=== PATIENT | male | born 1960 | race Caucasian/White ===

== ENCOUNTER 2019-10-15 10:00 | Outpatient (RCR) | payer OTHER, SELFPAY ==
--- NOTE | 2019-10-09 10:37 | PTOPEVAL ---
PHYSICAL THERAPY EVALUATION AND PLAN OF CARE 10-09-19 The PT evaluation was completed for Mr. Levy, for the diagnosis of deconditioning. The plan of treatment is established for 2x/week for 3 weeks. During the evaluation, Bravo reported that he was depressed about his situation and not being able to do things. Thank you for referring Bravo to [facility]. Please review, sign, date and return this plan of care FABIOLA. I agree with and certify that the following plan of care is medically necessary. Referring Physician Date Attending Provider: Dr. Cari Perez *PT Outpatient Evaluation Start: 10/09/19 09:32 Document 10/09/19 09:20 SKYLAR (Rec: 10/09/19 10:10 SKYLAR [id number]) Outpatient Past Medical History Neurological History Hx Cerebrovascular Accident (CVA) Yes: 5x 2017 Cardiovascular History Hx Hypercholesterolemia Yes: meds Hx Hypertension Yes: meds Hx Other Cardiac Disorders Yes: carotid stent Respiratory History Hx Chronic Obstructive Pulmonary Disease Yes (COPD) Gastrointestinal History Hx Gastroesophageal Reflux Disease Yes Hx Other Gastrointestinal Disorders Yes: constipation Musculoskeletal History Hx Other Musculoskeletal Disorders Yes: L shoulder pain and weakness from CVA Hematological History Hx Hematological Disorders No Significant History Endocrine History Hx Endocrine Disorders No Significant History HEENT History Hx Other HEENT Disorders Yes: seasonal allergies Integumentary History Hx Eczema Yes Reproductive History Hx Reproductive Disorders No Significant History Evaluation Information Problem Diagnosis deconditioning Onset few months ago Subjective Information gradual decrease in strength; Query Text:As Reported By Patient/ have had 2 falls in past 6 Family months--tripped in living room - fell backwards, landed on L side; in bathroom, lost balance and L side landed on edge of bathtub. He reports depressed and not motivated to do anything. Also asked about therapy for his arm, to get his arm stronger and be able to use it more. Discussed OT services with pt- -he is interested in OT. Request faxed to for OT orders for eval/treatment; Previous Treatments Previous Treatments For This Problem previous PT after CVA; Prior Level of Function Medications Home Meds (Include: OTC, RX, Vitamins, aspirin, atorvastatin, Herbals, Dose, Route,and Frequency) cetirizine, clopidogrel, Query Text:Home M
--- NOTE | 2019-10-09 11:02 | PCPTNOTE ---
discussed with pt and faxed request to for OT eval/treat orders to address L UE.
--- NOTE | 2019-10-25 14:35 | PCPTNOTE ---
pt did not show for today's appt;
--- NOTE | 2019-11-20 15:23 | PCPTNOTE ---
PHYSICAL THERAPY DISCHARGE 11-20-2019 Attending Provider: Dr. Cari Perez Patient:Bravo Levy Date of :1960 Mr. Levy has not returned for any further treatments since 10/15/2019, therefore he will be discharged from therapy at this time. The goals were not assessed. He has received the PT evaluation on 10-09-19 and one treatment session, for the diagnosis of deconditioning, then did not return for any further treatment. Thank you for referring Bravo to [facility]. Please review, sign, date and return this discharge summary FABIOLA. I have been updated about the patient's current status and I agree with discharge from the above service at this time. Referring Physician Date
== END 2019-11-21 09:48 | disposition home or self-care (01) ==
LOC: ANHPT 10:00
DX: R68.89 Other general symptoms and signs (principal)
CPT/HCPCS: 97110; 97161

== ENCOUNTER 2020-01-28 12:30 | Outpatient (RCR) | payer OTHER, SELFPAY ==
[2020-01-03 09:49] VITALS: BP_SYST 85
--- NOTE | 2020-01-03 10:52 | PTOPEVAL ---
Thank you for referring this patient to [facility]. Please review, sign, date and return this plan of care FABIOLA. Pt referred to therapy due to left shoulder pain and limitations. He demonstrates decreased shoulder range, strength, and function. He requires additional skilled therapy to address impairments and achieve therapy goals. Cont PT 1x/wk x 6 wks. I agree with and certify that the following plan of care is medically necessary. Referring Physician Date Attending Provider: PHYSICIAN NOT ON STAFF Referring Provider: Dr. Naa Perez MD *PT Outpatient Evaluation Start: 01/03/20 09:51 Freq: Status: Active Protocol: Document 01/03/20 09:49 CAP (Rec: 01/03/20 10:44 CAP [id number]) Therapy Assessment Status Assessment Status Assessment Status Evaluation Outpatient Past Medical History Neurological History Hx Cerebrovascular Accident (CVA) Yes: 5x 2016 Cardiovascular History Hx Hypercholesterolemia Yes: meds Hx Hypertension Yes: meds Hx Other Cardiac Disorders Yes: carotid stent Respiratory History Hx Chronic Obstructive Pulmonary Disease Yes (COPD) Gastrointestinal History Hx Gastroesophageal Reflux Disease Yes Hx Other Gastrointestinal Disorders Yes: constipation Musculoskeletal History Hx Other Musculoskeletal Disorders Yes: L shoulder pain and weakness from CVA Hematological History Hx Hematological Disorders No Significant History Endocrine History Hx Endocrine Disorders No Significant History HEENT History Hx Other HEENT Disorders Yes: seasonal allergies Integumentary History Hx Eczema Yes Reproductive History Hx Reproductive Disorders No Significant History Evaluation Information Problem Diagnosis left shoulder pain Onset 2017 Cause CVA Additional Evaluation Detail he was in [facility] after the stroke, then a [facility] for a few months, then returned home . Subjective Information Pt does not perform any Query Text:As Reported By Patient/ exercise for his arm or leg Family impairment. He reports increased pain with movement of left UE. He is able to perform ADL's, but is slow the task. He reports limitations with reaching in all directions. Reports difficulty with carrying heavy objects with left UE. He can carry light objects with elbow straigh
--- NOTE | 2020-01-14 08:20 | PCPTNOTE ---
Patient called & cancelled scheduled appointment this date due to COVID-19
--- NOTE | 2020-01-21 14:34 | PCPTNOTE ---
Patient did not show up for scheduled appointment this date.
--- NOTE | 2020-01-28 14:04 | PCPTNOTE ---
Will DC pt due to repeated no show.
--- NOTE | 2020-01-28 14:43 | PCPTNOTE ---
Admitting Provider: Dr. Cari Perez MD Attending Provider: PHYSICIAN NOT ON STAFF Patient:Bravo Levy Date of :1960 Patient has not returned for any further treatments since 01/03/2020, therefore he will be discharged at this time. Patient?s initial visit was on 01/03/2020 09:30 and he had a total of 1 visit. The goals have not been met. Thank you for referring this patient to [facility]. Please review, sign, date and return this discharge summary FABIOLA. I have been updated about the patient's current status and I agree with discharge from the above service at this time. Referring Physician Date
== END 2020-03-24 12:57 | disposition home or self-care (01) ==
LOC: ANHPT 12:30
DX: M25.512 Pain in left shoulder (principal)
CPT/HCPCS: 97110; 97162

== ENCOUNTER 2022-06-13 09:00 | Outpatient (RCR) | payer OTHER, SELFPAY ==
--- NOTE | 2022-05-23 09:29 | PTOPEVAL ---
Thank you for referring Bravo Levy to [facility].? He is scheduled to be seen for therapy? 2 x/week for 3 weeks. Please review, sign, date and return this plan of care FABIOLA. I agree with and certify that the following plan of care is medically necessary. Referring Physician Date Attending Provider: Lis Bello LE: hip flexion WNL, IR 20', ER 40'; knee and ankle WNL Outpatient Past Medical History Past Medical History Source of Past Medical History Recalled from Previous Visit, Confirmed with Patient/Family Neurological History Hx Cerebrovascular Accident (CVA) Yes: 5x 2017, L weakness Cardiovascular History Hx Hypercholesterolemia Yes: meds Hx Hypertension Yes: meds Hx Other Cardiac Disorders Yes: carotid stent Respiratory History Hx Chronic Obstructive Pulmonary Disease Yes (COPD) Gastrointestinal History Hx Gastroesophageal Reflux Disease Yes Hx Other Gastrointestinal Disorders Yes: constipation Genitourinary History Hx Renal Disease Yes: to get kidney US this week, saw kidney dr recently Musculoskeletal History Hx Back Pain Yes: chronic back pain Hx Other Musculoskeletal Disorders Yes: L shoulder pain; L arm and leg weakness from CVA Hematological History Hx Hematological Disorders No Significant History Endocrine History Hx Endocrine Disorders No Significant History HEENT History Hx Other HEENT Disorders Yes: seasonal allergies Integumentary History Hx Eczema Yes Reproductive History Hx Reproductive Disorders No Significant History Evaluation Information Diagnosis chronic back pain Onset about year ago Subjective Information reports gradual increase in Query Text:As Reported By Patient/ back pain--not as active and Family weaker; Diagnostic Tests X-Rays For This Problem Yes Previous Treatments Previous Treatments For This Problem no previous PT for back; Prior Level of Function Activity Level (Last 3 Months) Occupation not working due to medical disability Hand Dominance Right Activity of Daily Living Ability Independent Indoor/Home Mobility Independent Community Mobility Independent Stairs Ability Independent Functional Cognition (Planning, Shopping Independent , Taking Medications) Cooking Yes Cleaning Yes Laundry Yes Shopping Yes Driving No Home Setting Home Type Mobile Home,Single Level Environmental Barriers Stairs, 2-4 Living Situation With Spouse Mobility Assistive Devices (Used
--- NOTE | 2022-05-31 08:30 | PCPTNOTE ---
Patient called & cancelled scheduled appointment this date due to having major back pain.
--- NOTE | 2022-06-13 09:38 | PTOPEVAL ---
PHYSICAL THERAPY DISCHARGE REPORT 06-13-22 Refer to the clinical summary below, for his status today, compared to the initial evaluation. The goals were partially achieved. He will be discharged from PT services. Bravo is to continue with his HEP and increase his walking/activity tolerance. Thank you for referring Bravo Levy to [facility].? Please review, sign, date and return this Discharge report FABIOLA. I agree with and certify that the following plan of care is medically necessary. Referring Physician Date Attending Provider: Cari Perez MD Subjective Information Bravo reports: is the same, not Query Text:As Reported By Patient/ really changed since coming Family for therapy; doing some of the exercises at home, but sore and only did once the past few days; L knee swollen and hurts, not sure why; standing hurts back; mostly stay in the house, walk out to the mailbox, otherwise do not get out; Pain Assessment Pain Scale Pain Scale Used Numeric (1 - 10) Self Report Pain Assessment Bilateral Back Reported Pain Level 0 Pain Frequency Chronic,Intermittent Other Pain Description stiff in back, shooting pain sometimes to both calves, L more than R Lowest Pain Intensity 0 Greatest Pain Intensity 10 Pain Aggravating Factors Exercise/Activity,Weight Bearing/Standing Other Pain Aggravating Factors when first wake up in the morning; Pain Behaviors Anxious,Grimacing,Guarding Additional Pain Score Comments Oswestry self assessment 60% limitation; reported standing tolerance 10-15 minutes, walking tolerance limited due to shortness of breath; Interventions Used Interventions Used By Clinicians Education,Electrical Stimulation,Exercise Pain Relief Interventions Used By Heat,Inactivity/Rest, Patient Medication,Position Change Other Alleviating Interventions excedrin; heating pad Gross Lower Extremity Range of Motion hamstring length with supine Comments SLR R 50'/ L 50'- no increase in back pain; standing trunk flexion - fingers to knees with report of feels better, like good stretch to back ; Gross Lower Extremity Strength functional strength testing of LE's:
== END 2022-06-13 14:20 | disposition home or self-care (01) ==
LOC: ANHPT 09:00
DX: G89.29 Other chronic pain (principal)
CPT/HCPCS: 97014; 97110; 97162; G0283

== ENCOUNTER 2023-09-06 15:27 | Emergency (ER) | payer OTHER, SELFPAY ==
[2023-09-06 15:37] VITALS: BP 224/101; PULSE 92; RESP 20; TEMP 37.1; O2SAT 97
--- NOTE | 2023-09-06 16:03 | ED.DENTAL ---
HPI - Dental/Oral General Chief complaint: Dental/Oral Stated complaint: Oral Pain Time Seen by Provider: 09/06/23 15:54 Source: patient and RN notes reviewed Mode of arrival: ambulatory Limitations: no limitations History of Present Illness HPI Narrative: Patient presents today complaining of right lower tooth pain x3 days with some right lower jaw swelling. States this affected tooth has a hole in it. Reports that got infected approximately 1 year ago and he was treated with antibiotics which did help. He has not followed up with a dentist. He has been taking Tylenol without relief and currently rates his pain /. Denies shortness of breath or difficulty swallowing. Patient did not take his blood pressure medicine this morning and blood pressure upon arrival was 224/101. Related Data Home Medications Medication Instructions Recorded Confirmed albuterol sulfate 90 mcg/actuation 2 puff inhalation Q4-6H PRN sob 09/06/23 09/06/23 aerosol inhaler amlodipine 10 mg tablet 10 mg PO DAILY 09/06/23 09/06/23 atorvastatin 80 mg tablet 80 mg PO DAILY 09/06/23 09/06/23 budesonide-formoterol HFA 160 2 puff inhalation DAILY 09/06/23 09/06/23 mcg-4.5 mcg/actuation aerosol inhaler (Symbicort) clopidogrel 75 mg tablet 75 mg PO DAILY 09/06/23 09/06/23 famotidine 20 mg tablet 20 mg PO DAILY 09/06/23 09/06/23 losartan 50 mg tablet 50 mg PO DAILY 09/06/23 09/06/23 montelukast 10 mg tablet 10 mg PO DAILY 09/06/23 09/06/23 venlafaxine 150 mg 150 mg PO DAILY 09/06/23 09/06/23 capsule,extended release 24 hr Allergies Allergy/AdvReac Type Severity Reaction Status Date / Time No Known Allergies Allergy Verified 09/06/23 15:32 Review of Systems Review of Systems: CONSTITUTIONAL: Denies body aches, fever, chills, or sweats. EYES: Denies visual changes, redness, or discharge. ENT: Denies rhinorrhea, congestion, sore throat, or otalgia.+ tooth pain CARDIOVASCULAR: Denies chest pain, palpitations, or edema. RESPIRATORY: Denies cough or dyspnea. GASTROINTESTINAL: Denies abdominal pain, nausea, vomiting, or diarrhea. GENITOURINARY: Denies dysuria or hematuria. SKIN: Denies rash, itching, or wounds. MUSCULOSKELETAL: Denies back pain, joint pain, or myalgia. NEUROLOGIC: Denies headache, numbness, tingling, or weakness. PSYCH: Denies depression or anxiety. [facility] Past Medical History Medical History (Updated 09/06/23 @ 16:13 by Selina Palma, TOWN CLERK, ) History of stroke Comments At time of signature, I have reviewed and agree with nursing past medical, surgical, social and family history unless otherwise noted. Please see nursing chart for further information. There is no relevant family history pertinent to the presenting complaint Exam Narrative: GENERAL: Well-appearing, well-nourished, and in no acute distress. HEAD: Normocephalic, atraumatic. EYES: EOMI. No redness or drainage. Conjunctivae normal. ENT: Mucous membranes pink and moist. Gross dental decay. Affected tooth number 29 with black center. Mild erythema and edema of the gumline. Mild right lower jaw swelling. No trismus. NECK: Normal AROM. CHEST: No respiratory distress. EXTREMITIES: Normal range of motion. No edema. SKIN: Warm, dry, no rash. Capillary refill normal. Normal skin turgor. NEURO: No focal deficits. Alert and oriented x3. Gait steady. PSYCH: Normal affect. No signs of depression or anxiety. Course Course Level of Care: Express Care Visit Vital Signs Vital signs: Vital Signs Temperature 98.7 F 09/06/23 15:37 Pulse Rate 92 09/06/23 15:37 Respiratory Rate 20 09/06/23 15:37 Blood Pressure 224/101 H 09/06/23 15:37 Pulse Oximetry 97 09/06/23 15:37 Oxygen Delivery Room Air 09/06/23 15:37 Temperature 98.7 F 09/06/23 15:37 Pulse Rate 92 09/06/23 15:37 Respiratory Rate 20 09/06/23 15:37 Blood Pressure 224/101 H 09/06/23 15:37 Pulse Oximetry 97 09/06/23 15:37 Oxygen Delivery Room Air
[2023-09-06 16:18] VITALS: BP 210/110
== END 2023-09-06 16:18 | disposition left against medical advice (07) ==
PROVIDERS: Emergency Provider Nurse Practitioner; PCP Neurological Surgery
DX: K02.9 Dental caries, unspecified (principal); R03.0 Elevated blood-pressure reading, without diagnosis of hypertension; Z79.899 Other long term (current) drug therapy; Z86.73 Personal history of transient ischemic attack (TIA), and cerebral infarction without residual deficits
CPT/HCPCS: 99213; G0463

== ENCOUNTER 2025-09-02 09:30 | Outpatient (RCR) | payer MEDICARE, MEDICAID, SELFPAY ==
--- NOTE | 2025-08-07 11:09 | PTOPEVAL1 ---
Assessment and note entered by oJe Gutierrez, PT Evaluation Information Assessment Status Evaluation Diagnosis General Malaise ICD-10 Condition Codes (PT) Difficulty Walking R26.2,Weakness R53.1 Onset 2017 Subjective Information Reports that he has history of CVA in 2017. Did therapy after that incident. He has since had progressive weakness an instability with some cardiovascular issues. No stroke since that time He fees he is getting lower and does not have very good balance. If he looks up towards the ceiling he has some posterior instability. Feels he has not energy or stamina. Reports that the furthest he walks right now is about 100 ft. Reported Pain Level Pain Score 6: Self Report Assessment PT Clinical Summary Patient presents with left sided weakness, deconditioning, and functional decline requiring increased time and accommodation for mobilization activity. He will benefit from skilled therapy to improve hemispheric strength, mobilization, and endurance/gait speed to reduce fall risk and improve overall functionality. Plan of Care Interventions Gait Training,Manual Therapy,Neuro Re-education, Therapeutic Activities,Therapeutic Exercise PT Services Indicated Yes Treatment Frequency and 2x/week for 10 visits Duration These treatments will address the objective and functional deficits as defined above. The patient will be advanced safely and appropriately in order for the patient to progress towards his/her prior level of function. Additional exercises will be introduced and as well as a comprehensive home exercise program upon discharge, if needed, ?to ensure carryover of functional gains achieved in the clinic. This treatment plan has been reviewed and agreement upon by the patient.
--- NOTE | 2025-08-07 11:09 | OPREHPOC ---
Outpatient Therapy Plan of Care This is a Multidisciplinary Plan of Care that may contain components documented by all disciplines (PT, OT, and ST.) PT Problem 1 PT Problem #1 Knowledge Deficit PT Goal 1 Goal / Goal Update [place] with HEP Target Visit 4 PT Problem 2 PT Problem #2 Impaired Strength PT Goal 1 Goal / Goal Update 1. Improve tuyet hip flexion strength to 4+/5 to improve foot clearance with gait and functional mobility 2. Improve tuyet hip abduction strength to 4/5 to improve lateral stability with gait and transfers Target Visit 10 PT Problem 3 PT Problem #3 Impaired Functional Mobility PT Goal 1 Goal / Goal Update 1. Improve Tinetti score by 5 points to reduce fall risk 2. Improve gait speed to 2.4 fps to reduce fall risk and improve ambulation ability Target Visit 10
--- NOTE | 2025-08-29 08:30 | PCPTNOTE ---
Pt canceled todays appt. stating he cant make it.
--- NOTE | 2025-09-08 09:14 | PCPTNOTE ---
Cancelled reason unknown, per front office. AKS
--- NOTE | 2025-09-11 13:15 | PCPTNOTE ---
pt called and canceled today's reeval appt.
--- NOTE | 2025-10-13 10:26 | OPREHPOC ---
Outpatient Therapy Plan of Care This is a Multidisciplinary Plan of Care that may contain components documented by all disciplines (PT, OT, and ST.) PT Problem 1 PT Problem #1 Knowledge Deficit PT Goal 1 Goal / Goal Update [place] with HEP 10-13-25: d/c goals were not addressed. Target Visit 4 PT Problem 2 PT Problem #2 Impaired Strength PT Goal 1 Goal / Goal Update 1. Improve tuyet hip flexion strength to 4+/5 to improve foot clearance with gait and functional mobility 2. Improve tuyet hip abduction strength to 4/5 to improve lateral stability with gait and transfers 10-13-25: d/c goals were not addressed. Target Visit 10 PT Problem 3 PT Problem #3 Impaired Functional Mobility PT Goal 1 Goal / Goal Update 1. Improve Tinetti score by 5 points to reduce fall risk 2. Improve gait speed to 2.4 fps to reduce fall risk and improve ambulation ability 10-13-25: d/c goals were not addressed. Target Visit 10
--- NOTE | 2025-10-13 10:27 | PTOPDC ---
Assessment and note entered by Didi Simpson, PT Assessment Status Discharge - Pt Not Present Diagnosis General Malaise ICD-10 Condition Codes (PT) Difficulty Walking R26.2,Weakness R53.1 Onset 2017 Subjective Information pt called and canceled therapy. Assessment PT Clinical Summary Bravo has received 7 PT sessions and called/ canceled 4 appointments. He called and stated did not need any more therapy . Discharge PT. The goals were not addressed. Plan of Care PT Services Indicated No
== END 2025-10-14 16:21 | disposition home or self-care (01) ==
LOC: ANHPT 09:30
PROVIDERS: PCP Neurological Surgery
DX: R53.81 Other malaise (principal)
CPT/HCPCS: 97110; 97140; 97161; 97530